=== PATIENT | male | born 1995 | race Caucasian/White ===

== ENCOUNTER 2018-09-27 04:38 | Emergency (ER) | payer SELFPAY ==
[2018-09-27] MEDS ORDERED: ONDANSETRON HCL INJ/PF 4 MG/2 ML SDV IV ONE (05:18)
[2018-09-27] MEDS ORDERED: NORMAL SALINE 1000 ML 1,000 ML IV ONE ×2 (05:18)
--- NOTE | 2018-09-27 05:21 | ER Document Report ---
Addendum entered and electronically signed by MAYE GONZALES PA-C 09/27/18 09:55: Course - Re-evaluation Re-evalutation: 09/27/18 08:15 Assumed care of patient from ENMANUEL Nick. patient came in last night with acute ETOh intoxication. He has vomited once today and has improved since treatment here. Plan to await clinical sobriety. Patient has done well this morning. He has ambulated in the department with ease. He would like to be discharged home. Impression: Acute ETOH intoxication. Clinically sober, doing well. Will discharge home. Patient agrees with the plan. Encouraged to return if any worsening symptoms. - Vital Signs Vital signs: Temp Pulse Resp BP Pulse Ox 97.4 F 65 16 124/70 100 09/27/18 04:44 09/27/18 06:48 09/27/18 06:48 09/27/18 06:48 09/27/18 06:48 Original Note: ED Substance Abuse / Acc. OD - General Chief Complaint: ETOH Abuse Stated Complaint: UNRESPONSIVE Time Seen by Provider: 09/27/18 05:13 Notes: Patient is a 22-year-old male that comes emergency department for chief complaint of alcohol intoxication. Reportedly patient was found sleeping in his car intoxicated by reinforcing bar setter after he left the bar, they called EMS. He was given about 500 mL's of lactated Ringer's. Apparently patient had vomited in his car. Patient denies injury, recreational drugs, or any other complaints other than being very intoxicated. No daily medications or past medical history reported. Initial glucose 119 by EMS. TRAVEL OUTSIDE OF THE [place] IN LAST 30 DAYS: No - Related Data Allergies/Adverse Reactions: No Known Allergies Allergy (Verified 03/20/15 12:49) Past Medical History - General Information source: Patient - Social History Smoking Status: Current Every Day Smoker Chew tobacco use (# tins/day): No Frequency of alcohol use: Heavy Drug Abuse: None Lives with: Alone Family History: Reviewed & Not Pertinent Patient has suicidal ideation: No Patient has homicidal ideation: No Pulmonary Medical History: Reports: Hx Asthma Neurological Medical History: Reports: Hx Migraine Renal/ Medical History: Denies: Hx Peritoneal Dialysis GI Medical History: Reports: Hx Gastroesophageal Reflux Disease - Immunizations Hx Diphtheria, Pertussis, Tetanus Vaccination: Yes Review of Systems - Review of Systems Constitutional: See HPI EENT: No symptoms reported Cardiovascular: No symptoms reported Respiratory: No symptoms reported Gastrointestinal: See HPI Genitourinary: No symptoms reported Male Genitourinary: No symptoms reported Musculoskeletal: No symptoms reported Skin: No symptoms reported Hematologic/Lymphatic: No symptoms reported Neurological/Psychological: See HPI Physical Exam - Vital signs Vitals: Temp Pulse Resp BP Pulse Ox 97.4 F 60 14 121/76 100 09/27/18 04:44 09/27/18 04:44 09/27/18 04:44 09/27/18 04:44 09/27/18 04:44 - Notes Notes: GENERAL: Drowsy, clothes wet from rain, HEAD: Normocephalic, atraumatic. EYES: Pupils equal, round, and reactive to light. Extraocular movements intact. Notable nystagmus horizontally. Was not fever ENT: Oral mucosa moist, tongue midline. Oropharynx unremarkable. Airway patent. Nares patent, no nasal septal hematoma, TM's intact. NECK: Full range of motion. Supple. Trachea midline. LUNGS: Clear to auscultation bilaterally, no wheezes, rales, or rhonchi. No respiratory distress. HEART: Regular rate and rhythm. No murmur ABDOMEN: Soft, non-tender. Non-distended. Bowel sounds present in all 4 quadrants. GENITOURINARY: Deferred EXTREMITIES: Moves all 4 extremities spontaneously. No edema, normal radial and dorsalis pedis pulses bilaterally. No cyanosis. BACK: no cervical, thoracic, lumbar midline tenderness. No saddle anesthesia, normal distal neurovascular exam. Moves all extremities in full range of motion. NEUROLOGICAL: Drowsy but oriented x3. Slurred speech. Cranial nerves II through XII grossly intact. SKIN: Warm, dry, normal turgor. No rashes or lesions noted. Course - Re-evaluation Re-evalutation: Patient has nystagmus, sclerae his speech, smells of alcohol, is obviously intoxicated. His glucose is not low on EMS check. Vital signs generally unremarkable. Patient is oriented to person, place, events, he states he just needs to sober up. He will be given IV fluids and Zofran. Patient rechecked, still somnolent but arousable. He is improved. He is still intoxicated and will need more time. When he is clinically sober he will be discharged. Report given to Herber Gonzales PA-C. - Vital Signs Vital signs: Temp Pulse Resp BP Pulse Ox 97.4 F 65 16 124/70 100 09/27/18 04:44 09/27/18 06:48 09/27/18 06:48 09/27/18 06:48 09/27/18 06:48 Discharge - Discharge Clinical Impression: Alcohol intoxication Qualifiers: Complication of substance-induced condition: with unspecified complication Qualified Code(s): F10.929 - Alcohol use, unspecified with intoxication, unspecified Vomiting Qualifiers: Vomiting type: unspecified Vomiting Intractability: non-intractable Nausea presence: with nausea Qualified Code(s): R11.2 - Nausea with vomiting, unspecified Condition: Stable Disposition: HOME, SELF-CARE Additional Instructions: Do not drink alcohol to intoxication. Take nausea medication if needed today, I recommend the famotidine to speed up your recovery as well. Start with bland food. Drink plenty fluids. Rest. Follow-up with primary care. Return if you worsen including severe abdominal pain, severe headache, vomiting, or any other concerning or worsening symptoms. Prescriptions: Famotidine [Pepcid 20 mg Tablet] 20 mg PO BID #12 tablet Ondansetron [Zofran Odt 4 mg Tablet] 1 - 2 tab PO Q4H PRN #15 tab.rapdis PRN Reason: For Nausea/Vomiting Forms: Return to Work
[2018-09-27 06:49] VITALS: BP 124/70
== END 2018-09-27 09:58 | disposition home or self-care (01) ==
LOC: ER 04:38
DX: F10.929 Alcohol use, unspecified with intoxication, unspecified (principal); R11.2 Nausea with vomiting, unspecified; F17.200 Nicotine dependence, unspecified, uncomplicated; J45.909 Unspecified asthma, uncomplicated
CPT/HCPCS: 99284; 96361; 96374; J2405; J7030